=== PATIENT | female | born 1990 | race Caucasian/White ===

== ENCOUNTER 2019-11-06 15:00 | Outpatient (CLI) | payer OTHER, SELFPAY ==
--- NOTE | 2019-11-06 15:11 | XR_ITS ---
WS: [id number] XR knee RT 3V* [id number] REASON FOR EXAM: knee pain FINDINGS: The meniscal spaces are normal. No soft tissue swellings surrounding the knee. The patella femur articulations were normal. The patella tibial space is normal. No fractures or other dyscrasias. XR/XR knee RT 3V* [id number] IMPRESSION: Negative right knee.
== END 2019-11-06 15:01 | disposition home or self-care (01) ==
LOC: RAD 15:00
PROVIDERS: PCP Nurse Practitioner Family; Visit Provider Nurse Practitioner Family
DX: M25.561 Pain in right knee (principal)
CPT/HCPCS: 73562

== ENCOUNTER 2019-12-04 14:46 | Outpatient (CLI) | payer OTHER, SELFPAY ==
--- NOTE | 2019-12-04 15:07 | MR_ITS ---
WS: [id number] MRI RIGHT KNEE NONCONTRAST TECHNIQUE: Axial PD, coronal PD fat sat, coronal PD, sagittal PD, and sagittal PD fat-sat images obta ined. CLINICAL INFORMATION: right knee pain COMPARISON: None. FINDINGS: Normal anatomic alignment. Distal quadriceps and patella tendons are intact. Normal ACL. Normal PCL. Slightly hypertrophic patella. Prepatellar soft tissue edema. Medial and lateral meniscus are normal in appearance. Mild chronic thinning of the medial meniscus. Normal medial and lateral collateral lig aments. Mild chondromalacia patella. Normal popliteal fossa. MR/MR knee RT wo con* [id number] IMPRESSION: 1. Normal anterior and posterior cruciate ligaments. 2. Mild chronic thinning of the medial and lateral joint compartments. Mild ch ondromalacia. 3. No acute appearing meniscal tears. 4. Mild chondromalacia patella with hypertrophic patella. No subchondral edema . 5. Mild prepatellar soft tissue edema. Recommend correlation for prepatellar b ursitis.
== END 2019-12-04 14:47 | disposition home or self-care (01) ==
PROVIDERS: PCP Nurse Practitioner Family; Visit Provider Nurse Practitioner Family
DX: S89.91XA Unspecified injury of right lower leg, initial encounter (principal); X58.XXXA Exposure to other specified factors, initial encounter; M22.41 Chondromalacia patellae, right knee; R60.9 Edema, unspecified
CPT/HCPCS: 73721

== ENCOUNTER → 2021-02-17 10:37 | Outpatient (BNVA) | payer OTHER, SELFPAY | PROVIDERS: PCP Nurse Practitioner Family; Visit Provider Nurse Practitioner Family | DX: R53.83 Other fatigue (principal); L65.9 Nonscarring hair loss, unspecified; M25.50 Pain in unspecified joint | CPT/HCPCS: 82306; 82607; 82728; 83550; 84439; 84443; 84481; 85025; 86038; 86431 ==

== ENCOUNTER → 2021-07-14 08:49 | Outpatient (BNVA) | payer OTHER, SELFPAY | PROVIDERS: PCP Nurse Practitioner Family; Visit Provider Nurse Practitioner Family | DX: E55.9 Vitamin D deficiency, unspecified (principal); D64.9 Anemia, unspecified; E66.9 Obesity, unspecified | CPT/HCPCS: 82306; 83550 ==

== ENCOUNTER → 2022-12-20 11:17 | Outpatient (BNVA) | payer OTHER, SELFPAY | PROVIDERS: PCP Nurse Practitioner Family; Visit Provider Nurse Practitioner Family | DX: R53.83 Other fatigue (principal); D64.9 Anemia, unspecified; T78.40XA Allergy, unspecified, initial encounter; F32.A Depression, unspecified | CPT/HCPCS: 80053; 80061; 84439; 84443; 84481; 85025 ==

== ENCOUNTER → 2023-04-19 10:22 | Outpatient (BNVA) | payer OTHER, SELFPAY | PROVIDERS: PCP Nurse Practitioner Family; Visit Provider Nurse Practitioner Family | DX: D64.9 Anemia, unspecified (principal); F32.A Depression, unspecified | CPT/HCPCS: 82607; 83550; 85025 ==